=== PATIENT | male | born 1965 | race Caucasian/White ===

== ENCOUNTER 2024-08-23 06:10 | Day surgery (SDC) | payer OTHER, SELFPAY ==
[2024-08-23] VITALS (8 sets, daily range): BP systolic 100–153; BP diastolic 65–81; BMI 27.1
[2024-08-23] MEDS: TYLENOL 1000 MG PO (07:11)
[2024-08-23] MEDS: NORMOSOL-R/PLASMALYTE-A 1000 IV (07:11)
--- NOTE | 2024-08-23 07:16 | W.SUR.PREOP ---
Pre-Operative Surgical Note
-
I have examined this patient prior to the performance of the scheduled procedure.
The patient's condition is unchanged from the time of the current History and
Physical and the patient is able to undergo the scheduled procedure.
--- NOTE | 2024-08-23 09:39 | W.IMMPOSTOP ---
Surgical Immed Post Op Note
-
Primary Surgeon: Mathew Avalos MD
Assisting Surgeon: None
Pre-op Diagnosis: Right inguinal hernia
Post-op Diagnosis: Same
Procedure Performed: Laparoscopic right inguinal hernia repair with mesh
Anesthesia Type: General
Specimen / Cultures: Right cord lipoma
Estimated Blood Loss: 3 cc
Complications: None
Operative Findings: Small indirect and medium sized femoral hernias reduced. Reinforced with a standard weight [employer] large right 3D max uncoated polypropylene mesh.
--- NOTE | 2024-08-23 09:42 | OR.RPT ---
Operative Report
Operative Report
Patient Name: Brendon Rodriguez
: 1965
Date of Operation: 08/23/2024
Preoperative Diagnosis: Reducible Inguinal hernia, right
Postoperative Diagnosis: Same
Procedure(s):
Laparoscopic right inguinal Hernia Repair, with mesh (TEP approach)
Surgeon(s):
Dr. Avalos
Cryptologist(s):
None
Anesthesia: General
Estimated Blood Loss: 3 cc
Urine Output: None
Drains/Lines/Implants: Large 3D Max [employer] Soft Mesh
Specimens: Right cord lipoma
Indication for surgery: The patient has a history of groin pain and noted on exam to have a right inguinal Hernia(s). Following review of therapeutic options they elected to undergo a minimally invasive repair.
Operative Findings: Small indirect and medium sized femoral hernias reduced. Reinforced with a standard weight [employer] large right 3D max uncoated polypropylene mesh.
Details of the operation:
After inducing general anesthesia and endotracheal intubation, the patient was prepped and draped in the supine position with both arms tucked. After infiltration with 0.25% Marcaine, a right periumbilical incision was made. Dissection was carried
down to the anterior sheath which was incised and the rectus muscle retracted laterally. An origin balloon was then inserted in through the posterior portion of the rectus into the preperitoneal space. This was insufflated under direct vision and
blunt dissection was therefore achieved in the preperitoneal space. The balloon was then removed and a 12mm Balloon trocar was placed. Two 5-mm ports were also placed in the midline below the camera port. Blunt dissection was used to dissect the
myopectineal orifice with care not to injure the epigastric vessels, gonadals or spermatic cord. Blunt dissection was used to identify the direct, indirect, and femoral spaces.
Right side:
The cord was inspected and an indirect hernia sac was noted and reduced.
There was a small cord lipoma that was reduced and removed.
There was no weakness in the direct space floor.
There was a medium sized femoral herniation.
A large 3D max mesh was then placed into position and positioned into the appropriate area to cover all 3 defects. No tacks were used..
The area was then completely infiltrated with 20 cc of Marcaine without epinephrine (0.25%). The insufflation was slowly decreased and the mesh was assured to be in proper position with desufflation. Some intra-abdominal pneumoperitoneum was
evacuated via a small rent made in the posterior rectus sheath. The Sherri trocar site was also closed with 0 PDS suture in a [id number] fashion. The skin sites were all then closed with running subcuticular 4-0 Monocryl suture followed by
dermabond. Inspection of the scrotum revealed both testes to be in position. The patient returned to the recovery room in stable condition. Sponge and instrument counts were correct. No specimen sent to pathology
I was the attending physician and performed the procedure with no assistance. I was present for all portions of the case
Mathew Avalos MD
== END 2024-08-23 10:50 | disposition home or self-care (01) ==
LOC: SDS 06:10
PROVIDERS: ATTENDING PHYSICIAN Surgery; FAMILY PHYSICIAN Family Medicine Sports Medicine
PROC: 0YU54JZ Supplement Right Inguinal Region with Synthetic Substitute, Percutaneous Endoscopic Approach (ICD-10-PCS; 2024-08-23)
DX: K40.90 Unilateral inguinal hernia, without obstruction or gangrene, not specified as recurrent (principal); D17.6 Benign lipomatous neoplasm of spermatic cord
CPT/HCPCS: 49650; 88304; 93005; C1781